=== PATIENT | male | born 1985 | race Caucasian/White ===

== ENCOUNTER 2019-09-08 14:12 | Emergency (ER) | payer OTHER ==
[2019-09-08 14:38] VITALS: TEMP 98.8; BMI 26.4
--- NOTE | 2019-09-08 14:38 | PDOC ---
Rapid Medical Evaluation Chief Complaint: Pain Time Seen by Provider: 09/08/19 14:33 Medical Evaluation: Allergies Allergy/AdvReac Type Severity Reaction Status Date / Time No Known Allergies Allergy Verified 09/08/19 14:33 09/08/19 14:36 I have performed a brief in-person evaluation of this patient. The patient presents with a chief complaint of: h/o appendectomy present with complains of 3 days h/o N, epigastric and RUQ abd pains. Pt also report diarrhea. Denies vomiting, fever, weakness Pertinent physical exam findings: mild TTP to epigastric and RUQ I have ordered the following: cbc, cmp, lipase. The patient will proceed to the ED for further evaluation. Discharge Disposition - Diagnosis Epigastric abdominal pain - Discharge Dispostion Condition at time of disposition: Stable - Referrals - Patient Instructions - Post Discharge Activity
[2019-09-08 15:55] LABS: BASO % 0.4 % (0-2.0); EOS % 0.3 % (0-4.5); HEMATOCRIT 47.2 % (35.4-49); HEMOGLOBIN 16.7 GM/dL (11.7-16.9); LYMPH % 17.8 % (8-40); MCH 31.8 pg (25.7-33.7); MCHC 35.3 g/dl (32.0-35.9); MEAN CELL VOLUME 90.1 fl (80-96); MEAN PLT VOLUME 7.1 fl (7.5-11.1); MONO % 6.8 % (3.8-10.2); NEUT % 74.7 % (42.8-82.8); PLATELET COUNT 379 K/MM3 (134-434); RBC 5.24 M/mm3 (4.00-5.60); RDW 13.8 % (11.9-15.9); WHITE BLOOD COUNT 10.1 K/mm3 (4.0-10.0)
--- NOTE | 2019-09-08 16:15 | PDOC ---
History of Present Illness - General Chief Complaint: Pain Stated Complaint: ABD PAIN Time Seen by Provider: 09/08/19 14:33 History Source: Patient Exam Limitations: No Limitations - History of Present Illness Initial Comments: 09/08/19 16:10 Uri Manning is a 33M with no other PMH presenting with 3 days of epigastric and R-sided abdominal pain. Patient says that for the last 3 days has had intermittent burning epigastric and R-sided abdominal pain that worsens with meals. Denies spoiled food, fever, chills, nausea, vomiting, sick contacts. Last PO a cheese and meat sandwich. Non -positional. PSH appendicitis, still has GB. Drinks 1 pint of mixed alcohol per night, smokes 0.5ppd cigarettes, marijuana use 3x per week last one week ago. No chest pain, SOB, palpitations. No cardiac history, no family history of sudden cardiac . No known allergies. No medications taken daily. Past History - Past Medical History Allergies/Adverse Reactions: Allergies Allergy/AdvReac Type Severity Reaction Status Date / Time No Known Allergies Allergy Verified 09/08/19 14:33 CVA: No COPD: No CHF: No - Surgical History Appendectomy: Yes - Immunization History Immunization Up to Date: Yes - Psycho Social/Smoking Cessation Hx Smoking History: Never smoked Information on smoking cessation initiated: No Hx Alcohol Use: No Drug/Substance Use Hx: No Review of Systems - Review of Systems Able to Perform ROS?: Yes Constitutional: No: Chills, Fever HEENTM: No: Symptoms Reported Respiratory: No: Cough, Shortness of Breath Cardiac (ROS): No: Chest Pain, Edema, Irregular Heart Rate, Lightheadedness, Palpitations, Syncope ABD/GI: Yes: Other (abdominal pain). No: Constipated, Diarrhea, Nausea, Poor Appetite, Poor Fluid Intake, Vomiting : No: Symptoms Reported Musculoskeletal: No: Symptoms Reported Integumentary: No: Symptoms Reported Neurological: No: Symptoms reported Endocrine: No: Symptoms Reported Hematologic/Lymphatic: No: Symptoms Reported All Other Systems: Reviewed and Negative *Physical Exam - Vital Signs Last Vital Signs Temp Pulse Resp BP Pulse Ox 98.8 F 88 16 135/83 98 09/08/19 14:35 09/08/19 14:35 09/08/19 14:35 09/08/19 14:35 09/08/19 14:35 - Physical Exam General Appearance: Yes: Nourished, Appropriately Dressed. No: Apparent Distress HEENT: positive: EOMI, JERMAINE, Normal Voice, Symmetrical, Pharynx Normal, Hearing Grossly Normal. negative: Scleral Icterus (R), Scleral Icterus (L), Pharyngeal Erythema, Tonsillar Exudate, Tonsillar Erythema Neck: positive: Normal Thyroid, Supple. negative: Tender, Rigid, Lymphadenopathy (R), Lymphadenopathy (L) Respiratory/Chest: positive: Lungs Clear, Normal Breath Sounds, Respiratory Distress. negative: Chest Tender, Accessory Muscle Use, Crackles, Rales, Rhonchi, Stridor, Wheezing Cardiovascular: positive: Regular Rhythm, Regular Rate. negative: Murmur Gastrointestinal/Abdominal: positive: Normal Bowel Sounds, Tender (epigastric, RUQ, +Santillan), Flat, Soft. negative: Protuberent, Distended, Guarding, Rebound , Tenderness Musculoskeletal: positive: Normal Inspection. negative: CVA Tenderness Extremity: positive: Normal Capillary Refill, Normal Inspection, Normal Range of Motion, Pelvis Stable. negative: Tender Integumentary: positive: Normal Color, Dry, Warm Neurologic: positive: Fully Oriented, Alert, Normal Mood/Affect, Normal Response , Motor Strength 5/5 ED Treatment Course - LABORATORY CBC & Chemistry Diagram: 09/08/19 15:25 09/08/19 15:25 - ADDITIONAL ORDERS Additional order review: 09/08/19 15:25 RBC 5.24 MCV 90.1 MCHC 35.3 RDW 13.8 MPV 7.1 L Neutrophils % 74.7 Lymphocytes % 17.8 Monocytes % 6.8 Eosinophils % 0.3 Basophils % 0.4 - RADIOLOGY Radiology Studies Ordered: Category Date Time Status CHEST X-RAY PORTABLE* [RAD] Stat Radiology 09/08/19 15:18 Taken ABDOMEN US -LIMITED [US] Stat Ultrasound 09/08/19 15:47 Ordered Medical Decision Making - Medical Decision Making 09/08/19 18:12 Patient presents with epigastric and RUQ pain in the setting of daily alcohol use and fatty food intake, still has GB, has +Santillan and epigastric tenderness without N/V/D. Symptoms consistent with pancreatitis, GB pathology, gastritis, peptic ulcers - CBC/CMP for lytes/infection eval - lipase for pancreatitis eval - CXR/ECG for epigastric pain, r/o cardiac etiology, low suspicion - RUQ US for eval GB for stones and GB wall thickening ECG NSR with HR 76, QRS 90, QTc 445, no TWI or ischemic changes. CXR shows no acute pathology. US shows fatty liver without BG pathology. Labs notable for: - CBC WNL - CMP WNL - lipase low No evidence of cardiac anomaly. No GB pathology or pancreatitis. Likely gastritis, likely 2/2 alcohol. Stable for discharge home with PMD f/u, clinic referral, advice to decrease EtOH intake and avoid spicy foods. Discharge - Discharge Information Problems reviewed: Yes Clinical Impression/Diagnosis: Epigastric abdominal pain Condition: Stable Disposition: HOME - Admission No - Follow up/Referral [place] [facility] [facility] [place] [facility] [place] Group] Henok Will MD [Staff Physician] - - Patient Discharge Instructions Patient Printed Discharge Instructions: DI for Alcoholic Gastritis Additional Instructions: Today you were evaluated for abdominal pain. Your blood works show that you do not have an infection or pancreatitis. Your ultrasound does not show any evidence of gallbladder disease. Your ECG and X-ray do not show any heart disease. Your symptoms are being caused by gastritis, likely related to alcohol use. Please stop drinking alcohol each night to improve your symptoms, also avoid spicy foods and eating late at night. 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 Try taking Maalox over the counter for stomach pain. If you experience worsening abdominal pain, fever, chest pain, diarrhea, or any other new or concerning symptoms, please return to the emergency room. - Post Discharge Activity Work/Back to School Note: Back to Work
[2019-09-08 16:26] LABS: ALBUMIN 4.2 g/dl (3.4-5.0); BILIRUBIN,TOTAL 0.7 mg/dL (0.2-1); BLOOD UREA NITROGEN 8.1 mg/dL (7-18); CALCIUM 9.7 mg/dL (8.5-10.1); CREATININE 0.6 mg/dL (0.55-1.3); POTASSIUM 4.1 mmol/L (3.5-5.1)
--- NOTE | 2019-09-08 16:45 | PDOC ---
Attending Attestation - Resident Resident Name: Iván Dickinson - ED Attending Attestation I have performed the following: I have examined & evaluated the patient, The case was reviewed & discussed with the resident, I agree w/resident's findings & plan, Exceptions are as noted - HPI HPI: 09/09/19 01:41 23-year-old male presented with epigastric pain - Physicial Exam PE: 09/09/19 01:42 Well-nourished well-developed 33-year-old male no acute distress Head normocephalic , nontraumatic Neck supple Lungs clear to auscultation bilaterally CVS regular rate and rhythm S1-S2 Abdomen there was no focal tenderness, no rebound, no guarding, abdomen is soft No flank pain Skin warm and dry Neuro alert and oriented x3, ambulating with ease in the emergency department - Medical Decision Making 09/08/19 17:08 33-year-old male presents with right upper quadrant pain and some burning that he experienced after eating. He does state that he has been drinking a pint of alcohol every night. Past surgical history appendectomy Differential includes alcoholic gastritis, PUD, gallstones, GERD 09/08/19 17:09 CBC is unremarkable Chemistries are unremarkable Chest x-ray no free air under the diaphragm, normal mediastinum, no infiltrates or consolidations 09/08/19 17:10
[2019-09-08 18:30] VITALS: BP 135/82; PULSE 92
--- NOTE | 2019-09-09 11:01 | EKG ---
Test Reason : Blood Pressure : / mmHG Vent. Rate : 063 BPM Atrial Rate : 063 BPM P-R Int : 264 ms QRS Dur : 124 ms QT Int : 458 ms P-R-T Axes : 027 -09 013 degrees QTc Int : 468 ms SINUS RHYTHM WITH 1ST DEGREE A-V BLOCK NON-SPECIFIC INTRA-VENTRICULAR CONDUCTION DELAY BORDERLINE ECG NO PREVIOUS ECGS AVAILABLE Confirmed by Jose Urena MD ([id number]) on 09/09/2019 11:00:50 AM Referred By: Confirmed By:Jose Urena MD
== END 2019-09-08 18:10 | disposition home or self-care (01) ==
LOC: JER 14:12
DX: K29.20 Alcoholic gastritis without bleeding (principal)
CPT/HCPCS: 36415; 71045-TC-FY; 76705-TC; 80053; 83690; 85025; 86850; 86900; 86901; 93005; 93010; 99283-25